=== PATIENT | female | born 1955 | race Caucasian/White ===

== ENCOUNTER 2023-07-09 13:21 | Outpatient (CLI) | payer MEDICARE, SELFPAY | END 2023-07-09 13:22 | disposition home or self-care (01) | LOC: LAB 13:23 | PROVIDERS: PCP Orthopaedic Surgery; Visit Provider Family Medicine | DX: Z01.818 Encounter for other preprocedural examination (principal) | CPT/HCPCS: 36415; 86850; 86900; 86901 ==

== ENCOUNTER 2023-07-11 06:07 | Day surgery (SDC) | payer MEDICARE, SELFPAY ==
[2023-07-11] VITALS (20 sets, daily range): BP systolic 118–148; BP diastolic 66–92; PULSE 56–120; RESP 12–18; TEMP 36.3–36.9; O2SAT 94–100; BMI 31.6
--- OUTSIDE RECORDS SUMMARY | 2023-07-11 06:10 | XMS_ITS | Clinical Summary ---
Author Name Unknown Organization [employer] [facility] Address [place], [place] [address] Care Team Providers Care Electric Organ Assembler Name Role Phone Jackie Mauricio Primary Care Provider [phone] Allergies No known active allergies Medications Medication Sig Dispensed Refills Start Date End Date Status MULTIVITAMIN WITH MINERALS (MULTI-VIT 55 PLUS ORAL) Take by mouth. 0 Active cholecalciferol (VITAMIN D-3) 2,000 unit capsule Take 1 capsule by mouth once daily. 0 12/06/2018 Active atorvastatin (LIPITOR) 20 mg tabletIndications:Dys lipidemia Take 1 Tablet (20 mg) by mouth once daily. 90 Tablet 3 11/04/2022 Active lisinopriL (PRINIVIL; ZESTRIL) 20 mg tabletIndications:HTN (hypertension) Take 1 Tablet (20 mg) by mouth once daily. 90 Tablet 3 11/04/2022 Active TESTOSTERONE 2% IN EUCERIN CREAM ([facility] AMB MIX)Indications:Perso nal history of ongoing treatment with hormonal therapy Apply 1 gram topically daily 100 g 3 11/04/2022 Active meloxicam (MOBIC) 7.5 mg tabletIndications:Cer vical radiculopathy Take 1 Tablet (7.5 mg) by mouth once daily. 30 Tablet 11 11/04/2022 Active gabapentin (NEURONTIN) 300 mg capsuleIndications:Ce rvical radiculopathy Take 1 Capsule (300 mg) by mouth at bedtime. 90 Capsule 2 05/23/2023 Active Active Problems Problem Noted Date Diagnosed Date Depression, recurrent 05/29/2023 Transgender with history of gender confirmation surgery 02/02/2022 Dyslipidemia 01/08/2018 HTN (hypertension) 12/04/2017 Tear of medial meniscus of left knee, current Personal history of ongoing treatment with hormo nal therapy 01/27/2011 Malignant melanoma of skin of leg 08/31/2010 Jacobs's neuroma 10/30/2008 Keloid scar 11/09/2006 Hypothyroidism Resolved Problems Problem Noted Date Diagnosed Date Resolved Date Open wound of external ear, unspecified site, without mention of complication 11/09/2006 01/28/20 11 [id number] transgender person 02/02/2022 Overview: underwent transgender therapy to change to male phenotype Encounters Date Type Department Care Team Description 07/07/2023 10:20 AM FRONT END DEVELOPER DESIGNER Preop Visit [facility] [address] [place] [address] Abhilash Campos MD Preoperative Exam (DOS: 07/11/2023 LEFT Total Hip Replacement/Dr Herron/[facility]) 07/07/2023 Orders Only [facility] [address] [place] [address] Abhilash Campos MD 1 scan: (1-Ord) NFLD-EKG-07/07/23 07/06/2023 Travel 05/23/2023 1:35 PM FRONT END DEVELOPER DESIGNER Office Visit [facility] [address] [place] [address] Jackie Mauricio PA Medicare ANNUAL (subsequent) Visit (Concerns about long COVID-19/); Hip Pain/problem (Move forward with left hip replacement); Immunization/Injection 05/23/2023 Travel from Last 3 Months Immunizations Name Administration Dates Next Due AMB Influenza, IIV4 PF (=>6 mos Flulaval,Fluzone Fluarix)(Flu Clinic Only) 05/03/2016 COVID-19 vaccine (Pfizer-Bio NTech 30mcg/0.3mL) 12YO+ BIVALENT PF, MDV 11/04/2022 COVID-19 vaccine (Pfizer-Bio NTech 30mcg/0.3mL) 12YO+ VIVIEN-SUCROSE PF, MDV 11/17/2021 COVID-19 vaccine (Pfizer-Bio NTech 30mcg/0.3mL) PF, MDV 05/18/2021,10/10/2020,09/19/2020 Influenza, High-dose Inactivated 03/25/2013 Influenza, IIV3 (Age >=3 years) 06/09/2011,03/12 Influenza, IIV4 03/23/2022, 0,09/19/2018,2014,05/19/2014 Influenza, IIV4 (=>6mos) MDV 03/26/2020,05/30/20 17 Influenza, Inactivated AIIV4 (Age 65+ Years) Preserv Free 05/23/2023,03/31/2021 Pneumococcal Conj 20-valent (Prevnar 20) 11/04/2022 Pneumococcal conj 13-Valent (Prevnar 13) 05/23/2016 Td (Age >=7 Years) 08/27/2003 Tdap 03/25/2013 Zoster (Shingrix-RZV, recombinant) 08/22/2019, Family History Medical History Relation Name Comments Unknown Father No Known Problems Half-Brother 1 No Known Problems Half-Brother 2 Hyperlipidemia Half-Sister Rheum arthritis Maternal Grandfather Arthritis Mother Atrial fibrillation Mother Dementia Mother Relation Name Status Comments Father Half-Brother 1 Alive Half-Brother 2 Alive Half-Sister Alive Maternal Grandfather Maternal Grandmother Mother Paternal Grandfather Paternal Grandmother Social History Tobacco Use Types Packs/Day Years Used Date Smoking Tobacco: Never Smokeless Tobacco: Never Tobacco Cessation:Counseling Given: Yes Alcohol Use Standard Drinks/Week Comments Yes 0 (1 standard drink = 0.6 oz pur e alcohol) PHQ-2 Answer Date Recorded PHQ-2 TOTAL SCORE 2 05/23/2023 Social Connections Answer Date Recorded Frequency of Communication with Friends and Fami ly 0 07/07/2023 Financial Resource Strain Answer Date R ecorded Difficulty of Paying Living Expenses 3 07/07/2023 Difficulty of Paying Living Expenses Not on file 07/07/2023 Food Insecurity Answer Date Recorded Worried About Running Out of Food in the Last Ye ar 1 07/07/2023 Transportation Needs Answer Date Record ed Lack of Transportation (Medical) 1 07/07/2023 Housing Stability Answer Date Recorded Unable to Pay for Housing in the Last Year 1 07/07/2023 Sex and Gender Information Value Date Recorded Sex Assigned at Not on file Gender Identity Not on file Sexual Orientation Not on file Obstetrics History Last Filed Vital Signs Vital Sign Reading Time Taken Comments Blood Pressure 122/80 07/07/2023 10:25 AM FRONT END DEVELOPER DESIGNER Pulse 108 07/07/2023 10:25 AM FRONT END DEVELOPER DESIGNER Temperature 37.1 ??C (98.7 ??F) 11/04/2022 2:08 PM CD T Respiratory Rate 20 05/30/2017 4:32 PM FRONT END DEVELOPER DESIGNER Oxygen Saturation 97% 07/07/2023 10:25 AM FRONT END DEVELOPER DESIGNER Inhaled Oxygen Concentration - - Weight 91.6 kg (202 lb) 07/07/2023 10:25 AM FRONT END DEVELOPER DESIGNER Height 170.2 cm (5' 7) 07/07/2023 10:25 AM FRONT END DEVELOPER DESIGNER Body Mass Index 31.64 07/07/2023 10:25 AM FRONT END DEVELOPER DESIGNER Plan of Treatment Health Maintenance Due Date Last Done Comments DEXA/DXA scan for age 65+ 01/17/2021 COVID-19 vaccine series ( season) 2023 11/04/2022, 03/23/2022, 11/17/2021, Additional history exists Tetanus booster 03/25/2023 03/25/2013, 08/27/2003 Medicare Wellness for age 65+ 05/22/2024 05/23/2023 Depression screening for age 12+ 05/23/2024 05/23/2023, 11/04/2022, 02/02/2022, Additional history exists BMI (ht and wt on same day) for age 18+ 07/07/2024 07/07/2023, 05/23/2023, 11/04/2022, Additional history exists Fecal testing sDNA-FIT ([place] guard) for age 45-75 11/23/2024 11/23/2021, 09/25/2018, 09/19/2018 Lipids for age 45-75 11/05/2027 11/04/2022, 12/29/2020, 08/22/2019, Additional history exists Tdap Completed 03/25/2013 Hepatitis C screening for ag e 18-79 Completed 08/22/2019 Zoster (shingles) series for age 50+ Completed 08/22/2019, 09/19/2018 Pneumococcal series for age 65+ Completed , 05/23/2016 Influenza for age 65+ Completed 05/23/2023 , 03/23/2022, 03/31/2021, Additional history exists Procedures Procedure Name Priority Date/Time Associated Diagnosis Comments EKG 12 LEAD Routine 07/07/2023 1:40 PM FRONT END DEVELOPER DESIGNER Preoperative examination NV READING EKG - NO CHARGE, COMP ONLY Routine 07/07/2023 1:39 PM FRONT END DEVELOPER DESIGNER Preoperative examination POTASSIUM,ISTAT Routine 07/07/2023 11:32 AM FRONT END DEVELOPER DESIGNER Preoperative examination HEMOGLOBIN Routine 07/07/2023 11:26 AM FRONT END DEVELOPER DESIGNER Preoperative examination from Last 3 Months Results * EKG 12 LEAD (07/07/2023 1:40 PM FRONT END DEVELOPER DESIGNER) Abhilash Campos MD EKG ORD * NV READING EKG - NO CHARGE, COMP ONLY (07/07/2023 1:39 PM FRONT END DEVELOPER DESIGNER) Abhilash Campos MD PB - PROVIDER BEBETO KWAN * (ABNORMAL) POTASSIUM,ISTAT (07/07/2023 11:32 AM FRONT END DEVELOPER DESIGNER) POTASSIUM, POCT 5.1(H) 3.5 - 5.0 mmol/L 07/07/2023 11:35 AM FRONT END DEVELOPER DESIGNER [facility] Blood BLOOD SPECIMEN / Unknown 07/07/2023 11:32 AM FRONT END DEVELOPER DESIGNER 07/07/2023 11:35 AM FRONT END DEVELOPER DESIGNER Abhilash Campos MD CHEMISTRY [facility] [address] [place] [address], * HEMOGLOBIN (07/07/2023 11:26 AM FRONT END DEVELOPER DESIGNER) HEMOGLOBIN 16.4 13.5 - 17.5 g/dL 07/07/2023 11:32 AM FRONT END DEVELOPER DESIGNER [facility] MCV 94 80 - 100 fL 07/07/2023 11:32 AM FRONT END DEVELOPER DESIGNER [facility] Blood BLOOD SPECIMEN / Unknown Venipuncture / Unknown 07/07/2023 11:26 AM FRONT END DEVELOPER DESIGNER 07/07/2023 11:28 AM FRONT END DEVELOPER DESIGNER Abhilash Campos MD HEMATOLOGY [facility] [address] [place] [address], [place] [phone] from Last 3 Months Advance Directives Documents on File Type Date Recorded Patient Assembler For Puller Over Hand Expl anation Healthcare Directive 07/07/2023 10:16 AM Care Teams Electric Organ Assembler Relationship Specialty Start Date End Date Jackie Mauricio PA [address] [facility] [address] PCP - General Physician Networking Technology Instructor 02/02/22
[2023-07-11] MEDS: ACETAMINOPHEN 500 MG TABLET 1000 MG PO (06:20)
[2023-07-11] MEDS: CELECOXIB 200 MG CAPSULE PO (06:20)
[2023-07-11] MEDS: OXYCODONE (CR) 10 MG TAB.ER.12H PO (06:20)
[2023-07-11] MEDS: SODIUM CHLORIDE 0.9 % (FLUSH) 10 ML SYRINGE IVF (06:30)
[2023-07-11] MEDS: LACTATED RINGERS 1000 ML 1,000 ML 100 ML IV (06:30)
[2023-07-11] MEDS: MIDAZOLAM HCL 1 MG/ML inj IVP (07:13)
[2023-07-11] MEDS: fentaNYL 100 MCG/2 ML inj IVP (07:13)
--- NOTE | 2023-07-11 07:15 | CRLHL7_ITS ---
For Patients: As a result of the Century Cures Act, medical imaging exams and procedure reports are released immediately into your electronic medical record. You may view this report before your referring provider. If you have questions, please contact your health care provider. INDICATION: Left hip arthroplasty. FINDINGS: 71 seconds of fluoroscopy has been utilized for a left hip arthroplasty. There is intraoperative surgical clamp and left hip arthroplasty identified. On limited assessment, this appears to be in good position. IMPRESSION: Intraoperative findings of left hip arthroplasty. Dictated by Jorge Tee MD @ 07/24/2023 3:34:54 PM (Electronically Signed)
--- NOTE | 2023-07-11 07:26 | SUR.PREOP ---
TIME?OUT:?07 PT/Eric KOO RN/Steve SR MDA?VERIFICATION?OF?SURGICAL?SITE,?PROCEDURE,?AND?CONSENT OBTAINED?PRIOR?TO?INVASIVE?PROCEDURE.
[2023-07-11] MEDS: CEFAZOLIN 2 GM INJ IVP (07:31)
[2023-07-11] MEDS: TRANEXAMIC ACID 100 MG/ML INJ 1000 MG IV (07:32)
--- NOTE | 2023-07-11 08:44 | W.PM.NB ---
Nerve Block Nerve Block Time Seen by Provider: 07:17 Date Seen: 07/11/23 Type of block requested by surgeon for post-operative analgesia: JACK/LFCN Side: left Time out performed: Yes Verification of patient name: Yes Verification of date of : Yes Site marking: site marked Name of person performing procedure: Freddie Continuous monitoring Was continuous monitoring of O2 sat, B/P, cardiac care unit nurse, recorded every 15 minutes?: Yes Procedure Checklist: sterile prep, needles and gloves Ultrasound guided. Images saved: Yes Medications given in 5ml increments after negative aspiration: Ropivicaine %: 0.5 mL: 30 Needle gauge: 20 Decadron (mg): 10 Precedex (mcg): 25 Patient tolerated procedure well: Yes Additional comments: Needle noted below psoas tendon needle noted adjacent to LFCN Block Charges Block Charge (with Pro Fee): Other Periph Nerve Block Use of Ultrasound Machine for Block: Yes- US Guidance/pain block
--- NOTE | 2023-07-11 08:45 | W.ANESCHARGE ---
Anesthesia Charges Start Date/Time Anesthesia Start Date: 07/11/23 Anesthesia Start Time: 07:20 Stop Date/Time Anesthesia Stop Date: 07/11/23 Anesthesia Stop Time: 10:10
--- NOTE | 2023-07-11 09:19 | CRLHL7_ITS ---
For Patients: As a result of the Century Cures Act, medical imaging exams and procedure reports are released immediately into your electronic medical record. You may view this report before your referring provider. If you have questions, please contact your health care provider. INDICATION: Postop DEBBIE. TECHNIQUE: AP pelvis and lateral left hip. FINDINGS: New left DEBBIE. Components appear well seated. Adjacent postop soft tissue air. Dictated by Bob Dejesus MD @ 07/11/2023 12:24:39 PM (Electronically Signed)
--- NOTE | 2023-07-11 09:21 | P.ORPRC_ITS ---
Procedure Note Date of procedure: 07/11/23 Procedure: PREOPERATIVE DIAGNOSIS: Left hip osteoarthritis POSTOPERATIVE DIAGNOSIS: Left hip osteoarthritis NAME OF OPERATION: Left total hip arthroplasty SURGEON: Arvind Herron MD SPREADER: Erika Ramirez PA-C, FELIPE Lindquist IMPLANTS: 1. [employer] [place] # 52 sector ingrowth cup 2. 36 x 52 +4 neutral polyethylene 3. Actis # 8 high offset collared ingrowth stem 4. 36 + 1.5 ceramic femoral head ANESTHESIA: General ESTIMATED BLOOD LOSS: 420 cc COMPLICATIONS: None SPECIMENS: None DRAINS: None PREOPERATIVE ANTIBIOTICS: Ancef 2 grams INDICATIONS: The patient is a 68-year-old with a longstanding history of severe, unrelenting left hip pain secondary to end-stage left hip osteoarthritis. Despite appropriate nonoperative management, including activity modification, use of an assist device, anti-inflammatories, soiv-gfr-furhxnu pain medication, physical therapy and injections, they continue to have pain and disability. Operative intervention was offered. The risks, benefits and expected outcomes were discussed in detail. These included but were not limited to: Infection, bleeding, injury to blood vessel or nerve, venous thromboembolism. All questions were answered to their satisfaction. Use of an city carrier assistant was necessary throughout the case for patient positioning and safety, soft tissue retraction and closure. PROCEDURE: The patient was placed supine on the [place] table. General anesthesia was administered. The city carrier assistant made sure the patient was properly positioned. The left hip was prepped and draped in the usual sterile fashion. The image intensifier was brought in for a perfect AP pelvis and a perfect double tear drop AP view of each hip which were used for intraoperative templating with our fluoroscopic guide. An oblique incision was made 3 cm distal and 3 cm lateral to the anterior superior iliac spine. The city carrier assistant retracted the soft tissues to protect them. Subcutaneous dissection was taken with electrocautery to the superficial fascia. The fascia was divided in line with the incision. Blunt dissection was carried medially to the tensor fascia giuliana and sartorius interval. Deep dissection was carried with electrocautery. The circumflex vessels were cauterized and divided. The capsule was exposed and then divided in a T- fashion, tagged with #1 Ethibond sutures. Retractors were placed in the joint, held by the city carrier assistant. The corkscrew was placed in the femoral head. The neck cut was made in the subcapital region. We made a second neck cut more distal. The napkin ring of bone was removed. The femoral head was removed intact. Acetabular retractors were placed, held by the city carrier assistant. The labrum was sharply debrided. The capsule was released. The 43 mm reamer was used to the true medial wall. We then enlarged in 2 mm increments using the image intensifier for our reamer placement. We impacted the cup which had excellent purchase. We placed the polyethylene. Posterior and inferior osteophytes surrounding the cup were removed with osteotome and pituitary rongeur. Attention was then turned to the proximal femur. The limb was placed in 140 degrees of external rotation, maximum extension and adduction. A significant amount of time was spent releasing the capsule to allow us to deliver the femur into the wound and complete the femoral side safely. Retractors were held by the city carrier assistant throughout the femoral preparation. The box hinge and lock attacher and canal finder were used. Broaches were used to a stable size. The calcar reamer was used. Trial components were placed. The hip was reduced and was found to be stable with appropriate soft tissue tension. Length and offset had been nicely restored using the image intensifier and our fluoroscopic guide. Trial components were removed. The stem was impacted. We placed the femoral head. Again, the hip was reduced and was found to be stable with appropriate soft tissue tension. Length and offset had been nicely restored. The city carrier assistant did a three minute dilute Betadine solution soak. The city carrier assistant irrigated the wound with 3 liters of normal saline via pulse lavage. The city carrier assistant repaired the anterior capsule with a #1 Vicryl and our previously placed Ethibond sutures. The city carrier assistant closed the fascia over the tensor fascia giuliana with a #1 PDO Stratafix, subcutaneous tissues with 2-0 Vicryl, skin with a running 3-0 Stratafix and glue. A dry dressing was applied by the city carrier assistant. Sponge and needle counts were correct x 2. The patient tolerated the procedure well; there were no apparent complications. They were awakened and extubated in the operating room, sent to the Post-Anesthesia Care Unit in satisfactory condition. PLAN: 1. The patient will be mobilized with physical therapy, weight-bearing as tolerates 2. Xarelto x 5 days then aspirin x 30 days will be used for DVT prophylaxis 3. The patient will be discharged once medically appropriate
--- NOTE | 2023-07-11 10:11 | W.ANESCHARGE ---
Anesthesia Charges Start Date/Time Anesthesia Start Date: 07/11/23 Anesthesia Start Time: 07:20 Stop Date/Time Anesthesia Stop Date: 07/11/23 Anesthesia Stop Time: 10:10
[2023-07-11] MEDS: fentaNYL 100 MCG/2 ML inj 50 MCG IVP ×2 (10:17→10:24)
--- NOTE | 2023-07-11 11:00 | SUR.PHASEII ---
Addendum entered by Nestor Lawton RN 07/11/23 11:03: Patient also stated that this reddened area was not there prior. Original Note: Patient groin reddened on left side. Was not observed prior to surgery - patient did own preop scrub so was not visualized by RN preop.
[2023-07-11] MEDS: LACTATED RINGERS 1000 ML 1,000 ML 35 ML IV (12:24)
--- NOTE | 2023-07-11 13:58 | SUR.PHASEII ---
Patient up to bathroom to void with 2 assist and a walker. Was able to void. Tolerated movement ok. Did state he was feeling weak upon walking back to room. Patient wanted to rest for 15 minutes before working with OT. Patient had some crackers and apple juice. OT here now and working with patient.
--- NOTE | 2023-07-11 14:59 | SUR.PHASEII ---
Back from PT and passed. IV dc'd and patient was discharged to home with his .
== END 2023-07-11 14:59 | disposition home or self-care (01) ==
PROVIDERS: PCP Student in an Organized Health Care Education/Training Program; Visit Provider Orthopaedic Surgery
PROC: (CPT 27130; principal; 2023-07-11 07:15)
DX: M16.12 Unilateral primary osteoarthritis, left hip (principal); G89.18 Other acute postprocedural pain; I10 Essential (primary) hypertension; E03.9 Hypothyroidism, unspecified
CPT/HCPCS: 27130; 01214; 64450; 73501; 76000; 76942; 97110; 97116; 97161; 97165; 97535; A9270; C1776; J0330; J0690; J1100; J1170; J2250; J2371; J2704; J2710; J2795; J3010; J7120

== ENCOUNTER 2023-08-03 13:00 | Outpatient (RCR) | payer MEDICARE, SELFPAY ==
--- NOTE | 2023-07-20 16:29 | PT.OPEX ---
PT [place] Outpatient Eval PT [facility] Outpatient Eval Start: 07/20/23 13:40 Freq: Status: Active Protocol: Document 07/20/23 13:40 ANDREW (Rec: 07/20/23 16:18 ANDREW [id number]) E-signed By Kristin Garnica DPT Physical Therapy Outpatient Evaluation Insurance Information Recert Due Date 10/18/23 Insurance Name Medicare B,Emilio Medical Diagnosis s/p L DEBBIE 07/11/23 Treating Diagnosis s/p L DEBBIE 07/11/23 with L hip pain, impaired L hip ROM, impaired L hip/LE mobility/ strength, limping/antalgic gait using SPC Subjective Subjective Patient reports chronic L hip pain leading up to L DEBBIE . He went home the same day of his surgery. Spouse is available at home to assist as needed. Patient is doing his HEP, states they are going well. He reports having increased pain in L hip, increased general aches/pains and joint pains, and increased fatigue today after over doing it this morning. Reports having an auto immune disorder, has been going to a bridal gown fitter, taking meloxicam the last year or so. States he doesn't think he will be able to do much in PT today. Pain rated 6-7/10. Pain range 4-9/10. He has been using his pain meds from surgery in addition to the meloxicam. Icing regularly. Reports using a FWW the first day but has been using SPC since day 2. Able to get up/ down the stairs at home with step to step pattern. Had follow up with SAMANTHA James, yesterday to remove dressing. Incision is looking good. He is lying flat several times a day to stretch anterior hip/ scar tissue. Date of Last Physician Visit 07/19/23 Date of Surgery (If applicable) 07/11/23 Current Work Status Retired Precautions Treatment Precautions/Contraindications Hx cancer, auto immune disorder Assessment Assessment/Impression Patient is a 68 year old male s/p L DEBBIE 07/11/23 with L hip pain, impaired L hip ROM, impaired L hip/LE mobility/ strength, limping/antalgic gait using SPC. Pain range 4- 9/10. Patient is using pain meds regularly, icing regularly. He reports hx of auto immune disorder with increased fatigue, general muscle aches/pains, increased joint pain with stress. He reports over doing it this morning, now with increased pain and fatigue this afternoon. Able to review DEBBIE HEP. Patient with a good understanding of his exercises . Able to progress with seated, standing exercises this session. Tolerated well. He is amb with SPC with slow , limping, antalgic gait. Patient would benefit from skilled PT for pain/sx management, improved L hip ROM , improved L hip mobility/ strength, improved gait, and establishment of HEP. Plan of Care Rehabilitation Potential Good Physical Therapy Goals 1. Decrease L hip/thigh pain to less than/equal to 3/10 with daily activities and with the progression of PT activities over the next 4-6 weeks. 2. Improve L hip ROM over the next 4-6 weeks for improved gait mechanics, return to transfers with ease, and return to reciprocal stair negotiation. 3. Improve L hip/glut/LE/core strength over the next 6-8 weeks for return to transfers with ease, normal gait without AD, and extended standing/walking without flare up of pain. 4. Patient will be I with HEP within 8 weeks for progression toward above goals, ongoing self management of pain/sx, ongoing self improvements in L hip ROM/mobility/strength, and for return to daily and work activities, including standing/walking without flare up of pain. Coordination/Communication With Referral Source Treatment Plan/Direct Interventions Gait Training,Manual Therapy, Therapeutic Exercises Frequency/Duration 1x/week Patient Will Be Discharged From Therapy Completion of LTG(s),Skills Plateau,Independent w/HEP, Independently Progressing Evaluation Billing Untimed Code Treatment Minutes 18 Complexity Moderate Certification Information Initial Certification Date 07/20/23 Ending Certification Date 10/18/23 Provider Signature Shows Agreement With POC & Medical Necessity Physician Signature & Date Requested Please Sign/Date Here Physician Comment/Change : Physician NPI Number #
== END 2023-12-01 23:59 | disposition home or self-care (01) ==
PROVIDERS: PCP Orthopaedic Surgery; Visit Provider Orthopaedic Surgery
DX: M16.12 Unilateral primary osteoarthritis, left hip (principal); Z96.642 Presence of left artificial hip joint; Z51.89 Encounter for other specified aftercare
CPT/HCPCS: 97110; 97162

== ENCOUNTER 2025-05-19 14:45 | Outpatient (RCR) | payer MEDICARE, SELFPAY | END 2025-05-19 15:31 | disposition home or self-care (01) | PROVIDERS: PCP Student in an Organized Health Care Education/Training Program; Visit Provider Student in an Organized Health Care Education/Training Program | DX: M54.12 Radiculopathy, cervical region (principal); M50.30 Other cervical disc degeneration, unspecified cervical region; Z51.89 Encounter for other specified aftercare | CPT/HCPCS: 97110; 97140; 97162 ==